=== PATIENT | male | born 1955 | race Caucasian/White ===

== ENCOUNTER 2019-07-10 07:37 | Inpatient (IN) ==
[2019-06-28 14:31] LABS: Basophils # (auto) 0.04 K/uL (0-0.2); Basophils % (auto) 0.7 %; Eosinophils # (auto) 0.25 K/uL (0-0.5); Eosinophils % (auto) 4.4 %; Hematocrit (blood only) 43.5 % (42-52); Hemoglobin 14.3 g/dL (14.0-18.0); Immature Granulocytes # (auto) 0.01 K/uL (0.00-0.02); Immature Granulocytes % (auto) 0.2 %; Lymphocytes # (auto) 1.96 K/uL (1.2-3.4); Lymphocytes % (auto) 34.1 %; Mean Corpuscular Hemoglobin 31.8 pg (25-34); Mean Corpuscular Hgb Conc 32.9 g/dL (32-36); Mean Corpuscular Volume 96.9 fL (80-100); Mean Platelet Volume 11.1 fL (7.4-10.4); Monocytes % (auto) 13.9 %; Neutrophils # (auto) 2.68 K/uL (1.4-6.5); Neutrophils % (auto) 46.7 %; Platelet Count 220 K/uL (130-400); RDW Coefficient of Variation 12.7 % (11.5-14.5); RDW Standard Deviation 44.8 fL (36.4-46.3); Red Blood Count 4.49 M/uL (4.7-6.1); White Blood Count 5.74 K/uL (4.8-10.8)
[2019-06-28 14:46] LABS: INR 1.1 (0.9-1.1); Partial Thromboplastin Time 25.8 Seconds (21.0-31.0); Prothrombin Time 11.1 Seconds (9.0-12.0)
[2019-06-28 15:49] LABS: Appearance Urine Clear (Clear); Bilirubin Urine Negative (Negative); Blood Urine Negative (Negative); Color Urine Yellow; Glucose Urine UA Negative (Negative); Ketones Urine Negative (Negative); Leukocyte Esterase Urine Negative (Negative); Nitrite Urine Negative (Negative); Protein Urine Negative (Negative); Specific Gravity Urine 1.018 (1.000-1.030); Urobilinogen Urine Negative (Negative)
--- NOTE | 2019-07-03 09:35 | Anesthesiology Consultation ---
Date of Service July 03, 2019 Assessment & Plan (1) Encounter for pre-operative examination: Chart Review Chart Review: Acceptable Risk for Surgery and Patient NOT seen in Pre Admission Testing Please check BMP day of procedure Consults Requested none History Surgery Operation Date: 07/10/19 07:45 Proposed Procedures p L1-L2 Decompression, T10-L2 Posterior Spinal Fusion, L1-L2 Possible Interbody Fusion; Bilateral L2 Screw Removal; Spinal Cord Monitoring - Gigi House DO Height/Weight Height: 5 ft 11 in Weight: 120.202 kg Allergies Allergy/AdvReac Type Severity Reaction Status Date / Time ARTIFICIAL SWEETNERS Allergy Intermediate HIVES/SWELL Uncoded 06/21/19 14:25 ING HAM Allergy Intermediate Hives Uncoded 06/21/19 14:25 Medications Home Medications Medication Instructions Recorded Confirmed Last Taken acetaminophen [Tylenol Extra 1,000 mg PO Q6H PRN 06/21/19 06/21/19 Unknown Strength] albuterol sulfate 2 puff INHALATION Q6H PRN 06/21/19 06/21/19 Unknown atenolol 100 mg PO QAM 06/21/19 06/21/19 Unknown fluticasone propion-salmeterol 1 inh INHALATION QAM 06/21/19 06/21/19 Unknown [Advair Diskus] lactobacillus combination no.4 3,000 mmu cells PO HS 06/21/19 06/21/19 Unknown [Probiotic] lisinopril 20 mg PO QAM 06/21/19 06/21/19 Unknown omeprazole magnesium [Prilosec OTC] 20 mg PO QAM 06/21/19 06/21/19 Unknown pravastatin 40 mg PO 06/21/19 06/21/19 Unknown Past Medical History Medical History Degenerative disc disease GERD (gastroesophageal reflux disease) Hyperlipidemia Hypertension Myocardial Infarction 1984 Osteoarthritis Wheezing REASON FOR INHALERS Exercise / Class Metabolic Activity II 4-5 Yardwork/Stairs/Walk up hill Past Family History Family History Other No significant family history Past Surgical History Surgical History Fusion of spine LUMBAR H/O metal removed from eye History of cardiac cath X 2 IN 1984 [facility] History of cholecystectomy History of colonoscopy History of discectomy LUMBAR History of esophagogastroduodenoscopy (EGD) History of tonsillectomy and adenoidectomy Social History Smoking Status: Never smoker tobacco type: smokeless tobacco Do You Dip or Chew Tobacco: Yes (CHEWS POUCH TOBACCO) Hx Alcohol Use: Yes Alcohol type: beer alcohol intake frequency: holidays/special occasions only Hx Substance Use: No substance use type: does not use Testing Laboratory Results 06/28/19 13:22 PT 11.1 Seconds (9.0-12.0) 06/28/19 13:22 INR 1.1 (0.9-1.1) 06/28/19 13:22 APTT 25.8 Seconds (21.0-31.0) 06/28/19 13:22 Urine Color Yellow 06/28/19 13:22 Urine Appearance Clear (Clear) 06/28/19 13:22 Urine pH 7.0 (4.5-7.5) 06/28/19 13:22 Ur Specific [place] 1.018 (1.000-1.030) 06/28/19 13:22 Urine Protein Negative (Negative) 06/28/19 13:22 Urine Glucose (UA) Negative (Negative) 06/28/19 13:22 Urine Ketones Negative (Negative) 06/28/19 13:22 Urine Nitrite Negative (Negative) 06/28/19 13:22 Ur Leukocyte Esterase Negative (Negative) 06/28/19 13:22 Blood Type A Positive 06/28/19 13:22 Antibody Screen NEGATIVE 06/28/19 13:22 Electrocardiogram Date: 02/19/19 Findings: + LVH and + SB @ (59 bpm)
[~2019-07-10 07:37] MED LIST: ACETAMINOPHEN 500 MG TAB PO SCH; CEFAZOLIN 3000MG 72.5 ML IV SCH; CeleBREX 200 MG CAP PO SCH; GABAPENTIN 600 MG DOSE PO SCH; HYDROmorphone INJ 2 MG/ML SYR/VIAL ONE; LR 15ML/HR IV SCH; MIDAZOLAM HCL 1 MG/ML 2ML VIAL ONE; fentaNYL citrate 100 MCG/2 ML VIAL ONE
[2019-07-10 08:56] LABS: BUN Creatinine Ratio 20.7 (10-20); Calcium 9.2 mg/dl (8.5-10.1); Creatinine Clr Calc Pharmacy 93.4 ml/min; Est GFR (African American) 85.2; Est GFR (Non-African American) 73.5; Potassium 4.4 mmol/L (3.5-5.1)
[2019-07-10] MEDS ORDERED: SODIUM CHLORIDE 0.9% 250 ML IV PRN (09:28)
--- NOTE | 2019-07-10 09:32 | History & Physical Bridge Note ---
Date of Service July 10, 2019 History & Physical Bridge Note I have examined the patient, reviewed the History & Physical and in the interval since the performance of the History & Physical I have noted the following changes of clinical significance: no changes noted
--- NOTE | 2019-07-10 09:33 | History & Physical Report ---
Date of Service July 10, 2019 Assessment & Plan (1) Lumbar stenosis with neurogenic claudication: Decompression L1-2 posterior spinal fusion T10-L2 possible interbody fusion L1-2, removal of L2 screws bilaterally Present on Admission?: Yes History of Present Illness Chief Complaint: Bilateral leg pain Primary Care Provider: Gaviota Ramos This is a 64-year-old male presents with severe spinal stenosis and back and bilateral leg symptoms. He is failed extensive course of nonoperative care and here for surgical intervention. Allergies Allergy/AdvReac Type Severity Reaction Status Date / Time ARTIFICIAL SWEETNERS Allergy Intermediate HIVES/SWELL Uncoded 07/10/19 08:20 ING HAM Allergy Intermediate Hives Uncoded 07/10/19 08:20 Home Medications Home Medications Medication Instructions Recorded Confirmed Type acetaminophen [Tylenol Extra 1,000 mg PO Q6H PRN 06/21/19 07/10/19 History Strength] albuterol sulfate 2 puff INHALATION Q6H PRN 06/21/19 07/10/19 History atenolol 100 mg PO QAM 06/21/19 07/10/19 History fluticasone propion-salmeterol 1 inh INHALATION QAM 06/21/19 07/10/19 History [Advair Diskus] lactobacillus combination no.4 3,000 mmu cells PO HS 06/21/19 07/10/19 History [Probiotic] lisinopril 20 mg PO QAM 06/21/19 07/10/19 History omeprazole magnesium [Prilosec OTC] 20 mg PO QAM 06/21/19 07/10/19 History pravastatin 40 mg PO HS 06/21/19 07/10/19 History Past Med/Surg History Medical History Degenerative disc disease GERD (gastroesophageal reflux disease) Hyperlipidemia Hypertension Myocardial Infarction 1984 Osteoarthritis Wheezing REASON FOR INHALERS Surgical History Fusion of spine LUMBAR H/O metal removed from eye History of cardiac cath X 2 IN 1984 [facility] History of cholecystectomy History of colonoscopy History of discectomy LUMBAR History of esophagogastroduodenoscopy (EGD) History of tonsillectomy and adenoidectomy Family History Other No significant family history Social History Preferred Language: Czech Communication Ability: Effective Transformer 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 Results & Data Vital Signs (Past 12 Hours) Vital Signs Temp Pulse Resp BP Pulse Ox 07/10/19 08:11 37.1 C 61 20 167/98 H 94
[2019-07-10] MEDS ORDERED: BACITRACIN INJ 50,000 UNIT VIAL ONE (09:42)
[2019-07-10] MEDS ORDERED: BUPIVACAINE/EPINEPHRINE 0.5% MPF 1:200,000 30 ML VIAL ONE (09:42)
[2019-07-10] MEDS ORDERED: fentaNYL citrate 100 MCG/2 ML VIAL ONE ×5 (10:39→12:40)
[2019-07-10] MEDS ORDERED: HYDROmorphone INJ 2 MG/ML SYR/VIAL ONE ×2 (10:40→12:44)
[2019-07-10] MEDS ORDERED: PROPOFOL IV EMULSION 10 MG/ML 20 ML VIAL IV ONE (10:40)
[2019-07-10] MEDS ORDERED: GLYCOPYRROLATE 0.2 MG/ML VIAL ONE ×2 (10:40→11:15)
[2019-07-10] MEDS ORDERED: NEOSTIGMINE METHYLSULFATE 1 MG/ML 10ML VIAL ONE (10:40)
[2019-07-10] MEDS ORDERED: DEXAMETHASONE SOD INJ 4 MG/ML VIAL ONE (10:40)
[2019-07-10] MEDS ORDERED: LIDOCAINE HCL 2% 2 ML VIAL/AMP(20MG/ML) INFIL ONE (10:40)
[2019-07-10] MEDS ORDERED: ROCURONIUM BROMIDE 10 MG/ML 5 ML VIAL ONE (10:40)
[2019-07-10] MEDS ORDERED: ONDANSETRON INJ 2 MG/ML 2 ML VIAL ONE (10:40)
[2019-07-10] MEDS ORDERED: ePHEDrine sulfate 50 MG/ML AMP ONE (10:45)
[2019-07-10] MEDS ORDERED: PHENYLEPHRINE 100MCG/ML 5ML SYR ONE (10:45)
[2019-07-10] MEDS ORDERED: ePHEDrine sulfate 50 MG/ML SYR ONE (10:45)
[2019-07-10] MEDS ORDERED: LARYING-O-JET KIT (LTA) ONE (10:45)
[2019-07-10] MEDS ORDERED: FLOSEAL HEMOSTATIC MATRIX 10ML TOP ONE (11:09)
[2019-07-10] MEDS ORDERED: ATROPINE SULFATE 0.1 MG/ML 10ML SYR IV PRN (12:08)
[2019-07-10] MEDS ORDERED: HYDROmorphone INJ 1 MG/ML SYRINGE IV PRN (12:08)
[2019-07-10] MEDS ORDERED: ONDANSETRON INJ 2 MG/ML 2 ML VIAL IV PRN ×2 (12:08→14:36)
[2019-07-10] MEDS ORDERED: FLUMAZENIL 0.1 MG/1 ML 10 ML VIAL IV PRN (12:08)
[2019-07-10] MEDS ORDERED: ePHEDrine sulfate 50 MG/ML AMP IV PRN (12:08)
[2019-07-10] MEDS ORDERED: LABETALOL HCL IV 5 MG/ML 20ML IV PRN (12:08)
[2019-07-10] MEDS ORDERED: PROMETHAZINE HCL 12.5 MG in SODIUM CHLORIDE 0.9% 50 ML IV PRN ×2 (12:08→14:36)
[2019-07-10] MEDS ORDERED: NALOXONE HCL 0.4 MG/1 ML VIAL/CARP IV PRN ×2 (12:08→14:36)
--- NOTE | 2019-07-10 12:37 | Operative Report ---
Post Operative Report Pre & Post Diagnosis Operation Date: 07/10/19 09:25 Pre-Op Diagnosis: Lumbar stenosis with neurogenic claudication Post-Op Diagnosis: Lumbar stenosis with neurogenic claudication Procedure Operation Date: 07/10/19 09:25 Actual Procedures #1 removal of posterior instrumentation L2. #2 expiration of fusion L2-3. #3 lumbar decompression with bilateral medial facetectomies and foraminotomies T12- L1 L1-L2. #4 posterior spinal fusion T12 T11 L1 and L2. #5 placement posterior instrumentation T12-L1. #6 interbody fusion L1-2. #7 placed a peek cage 8 x 26 mm at L1-2. #8 placement of local autograft in the posterior lateral gutters per #9 placement infuse collagen sponge combined master graft in the posterior lateral gutters from T11-L2 and ostial amp and interbody space. Surgeon Gigi House, Manager Organizational Lisseth Luz Estimated Blood Loss 250 Findings See Below Patient is 5 foot 11 inches tall weighing over 120 kg with a BMI in excess of 37. The patient's body habitus did add significant technical difficulty throughout the procedure adding at least 35% increase in operative time. Specimens None Indications This is a 64-year-old male presents with significant cervical spinal stenosis limiting his ability to ambulate. Subsequently like to undergo the above- mentioned procedure. Description of Procedure Patient was met with identified and informed consent obtained. Patient was then taken to the operative suite underwent intubation placed in the prone position on the Dennis table on top of the Talha frame. All bony prominences well- padded eyes inspected to ensure no external pressure placed upon the peer at this point the thoracolumbar spine was prepped and draped in normal sterile fashion. Sharp dissection with the assistance of Bovie cautery was performed down to and exposing the lamina and transverse processes of T11 T12-L1 and instrumentation at L2. Then proceed remove the connectors and the pedicle screws at L2 bilaterally. Explore the fusion mass noting it to be intact. Then performed a complete laminectomy of L1 partial laminectomy of L2 from a caudal cephalad fashion including bilateral medial facetectomies and foraminotomies to address severe stenosis. Then by way of a transforaminal approach and left co mplete discectomy of L1-L2 was performed in plate graded to subcortical bleeding bone and an 8 x 26 mm peek cage filled with ostium bone graft tapped in position. Pedicle screw was then placed in T12 and L1 bilaterally with assistance of fluoroscopy and barrel connectors were placed on the proximal aspect of the pre-existing rods. I then attached rods to the T12-L1 level by way of through the barrel connector to the existing rods. Apparatus was locked into position. Transverse processes of T11-T12 L1-L2 and then burred to subcortical bleeding bone. Infuse collagen sponge master graft local autograft placed in the posterior lateral gutters. 15 round ALETHEA drain inserted. The incision was then closed with 1 Vicryl in the fascia 2-0 Vicryl subcutaneous and 4 Monocryl for final skin closure. Steri-Strip sterile dressings placed. Patient will continue PACU stable condition. Please note Lisseth Luz present all the entire procedure involved the patient positioning complex portions of t he surgery and final skin closure. Lastly spinal cord monitoring was utilized that the procedure no changes noted. I attest to the content of the Intraoperative Record and any orders documented therein. Any exceptions are noted below.
[2019-07-10] MEDS ORDERED: KETOROLAC 30 MG/ML VIAL ONE (12:44)
--- NOTE | 2019-07-10 13:00 | Fluoroscopy Report ---
INTRAOPERATIVE RADIOGRAPHS CLINICAL HISTORY: T10-L2 spinal fusion. Fluoroscopy time: 25 seconds. FINDINGS: 2 spot fluoroscopic views of the thoracolumbar junction are presented. There has been hank ectomy and posterior fusion the thoracolumbar spine, reportedly from T10 to L2. Discectomy change is noted at a single level. The orthopedic hardware appears intact. IMPRESSION: Intraoperative images from T10-L2 spinal fusion as above. Electronically signed by: Pradip Renteria M.D. 07/10/2019 12:58 PM
[2019-07-10] MEDS ORDERED: ESMOLOL HCL INJ 10 MG/ML 10ML VIAL IV ONE (13:05)
[2019-07-10 13:44] LABS: Hematocrit (blood only) 37.6 % (42-52); Hemoglobin 12.7 g/dL (14.0-18.0)
[2019-07-10 14:16] LABS: BUN Creatinine Ratio 17.7 (10-20); Calcium 8.3 mg/dl (8.5-10.1); Creatinine Clr Calc Pharmacy 86.1 ml/min; Est GFR (African American) 77.2; Est GFR (Non-African American) 66.7; Potassium 4.4 mmol/L (3.5-5.1)
--- NOTE | 2019-07-10 14:16 | Anesthesiology Progress Note ---
Date of Service July 10, 2019 Anesthesia Post Procedure Vital Signs Vital Signs: Temp Pulse Pulse Resp BP Pulse Ox 07/10/19 13:50 36.9 C 54 L 16 124/69 100 07/10/19 13:40 36.9 C 59 L 16 110/62 100 07/10/19 13:30 36.9 C 64 15 109/68 100 07/10/19 13:20 36.1 C L 66 14 110/72 100 07/10/19 13:10 36.1 C L 67 15 126/72 100 07/10/19 13:02 36.1 C L 81 10 L 107/70 99 07/10/19 08:11 37.1 C 61 20 167/98 H 94 Transfer of Care Handoff Completed per policy Notes Mental Status: alert / awake / arousable Patient Amnestic to Procedure: Yes Nausea / Vomiting: adequately controlled Pain: adequately controlled Airway Patency, RR, SpO2: stable & adequate BP & HR: stable & adequate Hydration State: stable & adequate Anesthetic Complications: no major complications apparent
[2019-07-10] MEDS ORDERED: METOCLOPRAMIDE HCL INJ 5 MG/ML 2 ML VIAL IV PRN (14:36)
[2019-07-10] MEDS ORDERED: SOD PHOSPHATE/SOD BIPHOSPHATE ENEMA 132 ML BTL PR PRN (14:36)
[2019-07-10] MEDS ORDERED: OXYCODONE HCL IR 5 MG TAB (IMMEDIATE RELEASE) PO PRN (14:36)
[2019-07-10] MEDS ORDERED: DO NOT ADMINISTER FLU VACCINE PRN (14:36)
[2019-07-10] MEDS ORDERED: MAGNESIUM HYDROXIDE SUSP 30 ML UDC PO PRN (14:36)
[2019-07-10] MEDS ORDERED: FAMOTIDINE 20 MG TAB PO PRN (14:36)
[2019-07-10] MEDS ORDERED: ONDANSETRON 4 MG TAB PO PRN (14:36)
[2019-07-10] MEDS ORDERED: ACETAMINOPHEN 500 MG TAB PO PRN ×2 (14:36)
[2019-07-10] MEDS ORDERED: ALBUTEROL HFA 8 GM INHALER INH PRN (14:36)
[2019-07-10] MEDS ORDERED: HYDROmorphone INJ 0.5 MG/0.5 ML SYR IV PRN (14:36)
[2019-07-10] MEDS ORDERED: LORazepam 0.5 MG/1 ML VIAL IV PRN (14:36)
[2019-07-10] MEDS ORDERED: LORazepam 0.5 MG TAB PO PRN (14:36)
[2019-07-10] MEDS ORDERED: DO NOT ADMINISTER PNEUMOCOCCAL VACCINE PRN (14:36)
[2019-07-10] MEDS ORDERED: bisacodyL 10 MG SUPP PR PRN (14:36)
[2019-07-10] MEDS ORDERED: ALUMINUM/MAGNESIUM SUSP 30 ML UDC PO PRN (14:36)
[2019-07-10] MEDS ORDERED: ACETAMINOPHEN 1,000 MG/100 ML VIAL IV PRN (15:00)
--- NOTE | 2019-07-10 15:03 | Hospitalist Consultation ---
Date of Consultation July 10, 2019 Assessment & Plan (1) S/P spinal surgery: This is a 64 yo M with a PMH of HTN, HLD, h/o [place] in 1984, GERD and lumbar stenosis who is POD #0 s/p decompression L1-2, posterior fusion T10-L2 and removal of instrumentation by Dr. House. -POD#0 s/p decompression L1-2, posterior fusion T10-L2 and removal of instrumentation by Dr. House -Pt is doing well post-operatively -Per ortho for pain control, wound care, anticoagulation and activities -Monitor H&H (pre-op hgb 14.3). EBL 250 ml, ALETHEA output 75 ml -Continue incentive spirometry, PT/OT when appropriate (2) Hypertension: Normotensive. Continue lisinopril, atenolol (3) Hyperlipidemia: Continue pravastatin (4) History of [place] (myocardial infarction): H/o [place] in 1984 -Continue atenolol, pravastatin -Used to take a baby aspirin daily but now takes two full dose aspirin daily for pain control, which was held pre-operatively -Hold until cleared by ortho and then resume asa 81mg daily (5) Tobacco use disorder: Chews tobacco daily PCP: Follows with Dr. Ramos in [place], [place]. Dispo: Per primary service Patient seen in collaboration with Dr. Short. Please see addendum. Supervising Physician Co-Signing Physician Notes I, Dr. Arturo Short, have seen and examined the patient with physician patient assistant and like to comment that This is a patient under general surgery service Dr. House and medicine hospitalist consult asked to evaluate Patient had diagnosis Lumbar stenosis with neurogenic claudication and on 07/10/19 had spine surgery of decompression and fusion (Actual Procedures #1 removal of posterior instrumentation L2. #2 expiration of fusion L2-3. #3 lumbar decompression with bilateral medial facetectomies and foraminotomies T12- L1 L1-L2. #4 posterior spinal fusion T12 T11 L1 and L2. #5 placement posterior instrumentation T12-L1. #6 interbody fusion L1-2. #7 placed a peek cage 8 x 26 mm at L1-2. #8 placement of local autograft in the posterior lateral gutters per #9 placement infuse collagen sponge combined master graft in the posterior lateral gutters from T11-L2 and ostial amp and interbody space.) -hospitalist medicine consult will monitor post-operatively, trend Hgb because of acute blood loss anemia from surgery -pain control, bowel regimen -patient will be evaluated by PT/OT -ALETHEA drain management as per orthopedics -depending on follow up blood counts and orthopedic re-assessment, will then need to decide dosing of aspirin, hold aspirin for now DVT prophylaxis: SCDs agree with other medical management recommendations for health issues as documented by physician patient assistant On physical exam General: no acute distress Lungs: breathing on room air, no wheezing, lung sounds clear on anterior auscultation Heart: regular rate Back: ALETHEA drain to the back Extremities: no edema History of Present Illness Reason for Consultation: med [facility] Attending Physician: Gigi House DO History of Present Illness This is a 64 yo M with a PMH of HTN, HLD, h/o [place] in 1984, GERD and lumbar stenosis who is POD #0 s/p decompression L1-2, posterior fusion T10-L2 and removal of instrumentation by Dr. House. Patient is feeling well postoperatively. Endorses minimal surgical site pain. Denies any numbness or paresthesias of lower extremities. Endorses some lightheadedness with movement but denies visual changes, chest pain or shortness of breath. Tolerating diet well without any nausea or vomiting. Denies fever, chills, confusion, palpitations, wheezing, dysuria, diarrhea or constipation. Follows with Dr. Ramos in [place], [place]. Allergies Allergy/AdvReac Type Severity Reaction Status Date / Time ARTIFICIAL SWEETNERS Allergy Intermediate HIVES/SWELL Uncoded 07/10/19 08:20 ING HAM Allergy Intermediate Hives Uncoded 07/10/19 08:20 Home Medications Home Medications Medication Instructions Recorded Confirmed Type acetaminophen [Tylenol Extra 1,000 mg PO Q6H PRN 06/21/19 07/10/19 History Strength] albuterol sulfate 2 puff INHALATION Q6H PRN 06/21/19 07/10/19 History atenolol 100 mg PO QAM 06/21/19 07/10/19 History fluticasone propion-salmeterol 1 inh INHALATION QAM 06/21/19 07/10/19 History [Advair Diskus] lactobacillus combination no.4 3,000 mmu cells PO HS 06/21/19 07/10/19 History [Probiotic] lisinopril 20 mg PO QAM 06/21/19 07/10/19 History omeprazole magnesium [Prilosec OTC] 20 mg PO QAM 06/21/19 07/10/19 History pravastatin 40 mg PO HS 06/21/19 07/10/19 History Patient History Medical History Tobacco use disorder (Chronic) History of [place] (myocardial infarction) (Resolved) Hyperlipidemia (Chronic) Hypertension (Chronic) GERD (gastroesophageal reflux disease) (Chronic) Degenerative disc disease (Chronic) Osteoarthritis (Chronic) Surgical History H/O metal removed from eye (Chronic) History of cardiac cath (Chronic) X 2 IN 1984 [facility] History of cholecystectomy (Chronic) History of colonoscopy (Chronic) History of discectomy (Chronic) LUMBAR History of esophagogastroduodenoscopy (EGD) (Chronic) History of tonsillectomy and adenoidectomy (Chronic) Family History Other No significant family history Social History Preferred Language: Austrian Communication Ability: Effective 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: No Beliefs That Will Affect Care: None Current Living Situation: Spouse Other Information That Helps Us Care for You: No Feels Safe at Home: Yes Safety Concerns: Feels Safe At This Time Smoking Status: Never smoker Tobacco Type: smokeless tobacco ; Do You Dip or Chew Tobacco: Yes (CHEWS POUCH TOBACCO) ; Second Hand Exposure: Yes (PAST HX OF EXPOSURE) ; Tobacco Cessation Education Requested by Patient: No Hx Alcohol Use: Yes Alcohol type: beer Alcohol Intake Frequency: Rarely Hx Substance Use: No Review of Systems Review of Systems: At least ten systems reviewed and negative except as noted in the HPI. Physical Exam Physical Exam: General Appearance: WD/WN, vitals as above, NAD, sitting up in bed, pleasant, conversing easily while eating lunch Head: normocephalic, atraumatic Eyes: normal inspection, PERRL, conjunctivae normal, anicteric sclerae ENT: external ear and nose normal, oropharynx normal Neck: trachea midline, no thyromegaly normal visual inspection Respiratory: lungs clear to auscultation, no wheeze, rales, rhonchi. Normal insp/exp effort, no accessory muscle use Cardiovascular: regular rate, rhythm, no murmur, normal peripheral pulses. Vessels: no JVD or carotid bruit Chest: normal inspection of chest Abdomen/GI: normal bowel sounds, soft, nontender, no hepatosplenomegaly Extremities/Musculoskelatal: Lumbosacral surgical dressing clean, dry, intact. ALETHEA drain with sanguineous output. No cyanosis or clubbing, extremities motor strength 5/5 Neurologic: PERRL, EOMI, accommodation nl, no face palsy, no dysarthria CN's II-XI intact bilaterally and moves all extremities, strength intact in BLE Psychiatric: A+Ox3, euthymic affect Skin: no rashes, normal color, warm/dry Results & Data Vital Signs (Past 12 Hours) Vital Signs Temp Pulse Pulse Pulse Resp BP Pulse Ox 07/10/19 14:51 62 17 120/68 98 07/10/19 14:20 36.5 C 61 16 104/57 L 100 07/10/19 13:50 36.9 C 54 L 16 124/69 100 07/10/19 13:40 36.9 C 59 L 16 110/62 100 07/10/19 13:30 36.9 C 64 15 109/68 100 07/10/19 13:20 36.1 C L 66 14 110/72 100 07/10/19 13:10 36.1 C L 67 15 126/72 100 07/10/19 13:02 36.1 C L 81 10 L 107/70 99 07/10/19 08:11 37.1 C 61 20 167/98 H 94 Laboratory Results Short CBC 07/10/19 Range/Units 13:36 Hgb 12.7 L (14.0-18.0) g/dL Hct 37.6 L (42-52) % BMP 07/10/19 07/10/19 08:19 13:36 Sodium 140 142 Potassium 4.4 4.4 Chloride 108 H 108 H Carbon Dioxide 28 27 BUN 22 H 20 H Creatinine 1.07 1.16 Glucose 106 H 110 H Calcium 9.2 8.3 L
[2019-07-10] MEDS: KETOROLAC 30 MG/ML VIAL IV SCH ×2 (15:39→21:27)
[2019-07-10] MEDS: CEFAZOLIN 2000MG 2,000 MG/15 ML SYR IV SCH (17:32)
[2019-07-10] MEDS: LACTATED RINGER'S 1,000 ML IV SCH (18:47)
[2019-07-10] MEDS: PRAVASTATIN SOD 40 MG TAB PO SCH (21:26)
[2019-07-10] MEDS: DOCUSATE SODIUM/SENNA 50/8.6MG TAB PO SCH (21:27)
[2019-07-10] MEDS: LACTOBACILLUS ACIDOPHILUS (FLORANEX) TAB PO SCH (21:27)
[2019-07-11] MEDS: LACTATED RINGER'S 1,000 ML IV SCH ×2 (01:10→03:37)
[2019-07-11] MEDS: KETOROLAC 30 MG/ML VIAL IV SCH ×2 (03:08→08:26)
[2019-07-11] MEDS: CEFAZOLIN 2000MG 2,000 MG/15 ML SYR IV SCH (03:08)
[2019-07-11] MEDS: POLYETHYLENE (MIRALAX) 17 GM PACK PO SCH ×4 (05:37→23:25)
[2019-07-11] MEDS: TRAMADOL HCL 50 MG TABLET PO PRN ×4 (05:38→20:20)
[2019-07-11 06:02] LABS: Basophils # (auto) 0.02 K/uL (0-0.2); Basophils % (auto) 0.2 %; Eosinophils # (auto) 0.16 K/uL (0-0.5); Hemoglobin 11.5 g/dL (14.0-18.0); Immature Granulocytes # (auto) 0.01 K/uL (0.00-0.02); Immature Granulocytes % (auto) 0.1 %; Lymphocytes # (auto) 1.02 K/uL (1.2-3.4); Lymphocytes % (auto) 12.4 %; Mean Corpuscular Hemoglobin 32.4 pg (25-34); Mean Corpuscular Hgb Conc 32.9 g/dL (32-36); Mean Corpuscular Volume 98.6 fL (80-100); Mean Platelet Volume 10.9 fL (7.4-10.4); Monocytes # (auto) 0.84 K/uL (0.11-0.59); Monocytes % (auto) 10.2 %; Neutrophils # (auto) 6.15 K/uL (1.4-6.5); Neutrophils % (auto) 75.1 %; Platelet Count 158 K/uL (130-400); RDW Coefficient of Variation 12.5 % (11.5-14.5); RDW Standard Deviation 45.3 fL (36.4-46.3); Red Blood Count 3.55 M/uL (4.7-6.1)
[2019-07-11 06:38] LABS: BUN Creatinine Ratio 14.7 (10-20); Calcium 8.5 mg/dl (8.5-10.1); Est GFR (African American) 95.9; Est GFR (Non-African American) 82.7; Potassium 4.2 mmol/L (3.5-5.1)
[2019-07-11] MEDS: FLUTICASONE/SALMETEROL 250/50 (ADVAIR) 14 PUFF/1 INHALER INH SCH (08:25)
[2019-07-11] MEDS: PANTOprazole 40 MG TAB PO SCH (08:26)
[2019-07-11] MEDS: ATENOLOL 50 MG TABLET PO SCH (08:26)
[2019-07-11] MEDS: lisinopriL 20 MG TAB PO SCH (08:26)
--- NOTE | 2019-07-11 08:28 | Hospitalist Progress Note ---
Date of Service July 11, 2019 Assessment & Plan (1) S/P spinal surgery: Patient had diagnosis Lumbar stenosis with neurogenic claudication and on 07/10/19 had spine surgery of decompression and fusion (Actual Procedures #1 removal of posterior instrumentation L2. #2 expiration of fusion L2-3. #3 lumbar decompression with bilateral medial facetectomies and foraminotomies T12- L1 L1-L2. #4 posterior spinal fusion T12 T11 L1 and L2. #5 placement posterior instrumentation T12-L1. #6 interbody fusion L1-2. #7 placed a peek cage 8 x 26 mm at L1-2. #8 placement of local autograft in the posterior lateral gutters per #9 placement infuse collagen sponge combined master graft in the posterior lateral gutters from T11-L2 and ostial amp and interbody space.) -pain control, bowel regimen -patient will be evaluated by PT/OT -ALETHEA drain management as per orthopedics -trial of void with hall discontinued, monitor for bowel movements Acute blood loss anemia -pre-op hgb 14.3 -EBL 250 ml during surgery -ALETHEA drain output -Hgb postop generally stable as 12.7 to 11.5 -can hold aspirin for now (2) Hypertension: -continue lisinopril, atenolol (3) Hyperlipidemia: -Continue pravastatin (4) History of [place] (myocardial infarction): H/o [place] in 1984 -Continue atenolol, pravastatin -will hold aspirin at this time because post-op surgery with anemia (5) Tobacco use disorder: -Chews tobacco daily -off nicotine patch PCP: Follows with Dr. Ramos in [place], [place] Subjective Patient seen and examined at the bedside. he has some back pain but getting pain medications. He has ALETHEA drain to the back with serosanguineous fluid. Nurse just discontinued the hall. Patient has not had bowel movement yet since his surgery. denies shortness of breath. denies chest pain or abdominal pain. no dizziness. no lightheadedness Physical Exam Constitutional: WD/WN, vitals as above Eyes: PERRL, conjunctivae normal, anicteric sclerae EOM intact bilaterally ENMT: external ear and nose normal, oropharynx normal Respiratory: normal respiratory effort, lungs clear to auscultation Cardiovascular: RRR, no murmur, no edema Gastrointestinal (Abdomen): normal bowel sounds, soft, nontender, no hepatosplenomegaly Musculoskeletal: Head/Neck/Chest: normocephalic and head atraumatic ALETHEA drain to the back Neurologic: PERRL, EOMI, accommodation nl, no face palsy, no dysarthria Psychiatric: A+Ox3, euthymic affect Results & Data Vital Signs (Past 12 Hours) Vital Signs Temp Pulse Resp BP Pulse Ox 07/11/19 07:10 36.7 C 72 16 143/81 H 93 07/11/19 03:07 36.9 C 62 16 128/77 97 07/10/19 23:18 36.8 C 65 16 113/68 92
[2019-07-11] MEDS: NICOTINE 7 MG/24 HR TDSY TD SCH (09:36)
--- NOTE | 2019-07-11 11:29 | Orthopedic Progress Note ---
Date of Service July 11, 2019 Assessment & Plan (1) Lumbar stenosis with neurogenic claudication: This time will initiate physical therapy advance his bowel regiment hopefully discharge home the next few days. Present on Admission?: Yes Subjective Patient's back pain is controlled leg symptoms improved. Physical Exam Physical Exam: On exam he appears comfortable with good strength testing. Results & Data Vital Signs (Past 12 Hours) Vital Signs Temp Pulse Resp BP Pulse Ox 07/11/19 10:51 37 C 73 18 148/81 H 93 07/11/19 07:10 36.7 C 72 16 143/81 H 93 07/11/19 03:07 36.9 C 62 16 128/77 97
[2019-07-11] MEDS: LACTOBACILLUS ACIDOPHILUS (FLORANEX) TAB PO SCH (20:14)
[2019-07-11] MEDS: DOCUSATE SODIUM/SENNA 50/8.6MG TAB PO SCH (20:15)
[2019-07-11] MEDS: PRAVASTATIN SOD 40 MG TAB PO SCH (20:16)
[2019-07-12] MEDS: TRAMADOL HCL 50 MG TABLET PO PRN ×3 (06:16→22:15)
[2019-07-12] MEDS: POLYETHYLENE (MIRALAX) 17 GM PACK PO SCH (06:19)
[2019-07-12] MEDS: FLUTICASONE/SALMETEROL 250/50 (ADVAIR) 14 PUFF/1 INHALER INH SCH (07:17)
--- NOTE | 2019-07-12 08:13 | Orthopedic Progress Note ---
Date of Service July 12, 2019 Assessment & Plan (1) Lumbar stenosis with neurogenic claudication: Patient is status post lumbar decompression fusion. We will continue with physical therapy advance his bowel regiment hopefully discharge home tomorrow. Present on Admission?: Yes Subjective Patient's back pain is controlled leg symptoms improved. Physical Exam Physical Exam: On exam he is ambling with a walker has good strength testing. Results & Data Vital Signs (Past 12 Hours) Vital Signs Temp Pulse Resp BP Pulse Ox 07/12/19 06:33 36.9 C 72 16 138/83 92 07/11/19 23:03 36.8 C 71 16 118/74 93
[2019-07-12] MEDS: lisinopriL 20 MG TAB PO SCH (08:41)
[2019-07-12] MEDS: PANTOprazole 40 MG TAB PO SCH (08:41)
[2019-07-12] MEDS: ATENOLOL 50 MG TABLET PO SCH (08:41)
--- NOTE | 2019-07-12 09:45 | Hospitalist Progress Note ---
Date of Service July 12, 2019 Assessment & Plan (1) S/P spinal surgery: Patient had diagnosis Lumbar stenosis with neurogenic claudication and on 07/10/19 had spine surgery of decompression and fusion (Actual Procedures #1 removal of posterior instrumentation L2. #2 expiration of fusion L2-3. #3 lumbar decompression with bilateral medial facetectomies and foraminotomies T12- L1 L1-L2. #4 posterior spinal fusion T12 T11 L1 and L2. #5 placement posterior instrumentation T12-L1. #6 interbody fusion L1-2. #7 placed a peek cage 8 x 26 mm at L1-2. #8 placement of local autograft in the posterior lateral gutters per #9 placement infuse collagen sponge combined master graft in the posterior lateral gutters from T11-L2 and ostial amp and interbody space.) -pain control, bowel regimen -PT/OT -ALETHEA drain management as per orthopedics Acute blood loss anemia -pre-op hgb 14.3 -EBL 250 ml during surgery -ALETHEA drain output -Hgb postop generally stable as 12.7 to 11.5 -hold aspirin for now, can resume aspirin 81 mg daily when ALETHEA drain removed (2) Hypertension: -continue lisinopril, atenolol (3) Hyperlipidemia: -Continue pravastatin (4) History of DC (myocardial infarction): H/o DC in 1984 -Continue atenolol, pravastatin -hold aspirin for now, can resume aspirin 81 mg daily when ALETHEA drain removed (5) Tobacco use disorder: -Chews tobacco daily -offer nicotine patch PCP: Follows with Dr. Ramos in [place], [place] Subjective continues to have ALETHEA drain to the back. reports back pain is generally controlled. no shortness of breath. no abdomen pain. no dizziness. no lightheadedness Physical Exam Constitutional: WD/WN, vitals as above Eyes: PERRL, conjunctivae normal, anicteric sclerae EOM intact bilaterally ENMT: external ear and nose normal, oropharynx normal Respiratory: normal respiratory effort, lungs clear to auscultation Cardiovascular: RRR, no murmur, no edema Gastrointestinal (Abdomen): normal bowel sounds, soft, nontender, no hepatosplenomegaly Musculoskeletal: Head/Neck/Chest: normocephalic and head atraumatic continues to have ALETHEA drain to the back Neurologic: PERRL, EOMI, accommodation nl, no face palsy, no dysarthria Psychiatric: A+Ox3, euthymic affect Results & Data Vital Signs (Past 12 Hours) Vital Signs Temp Pulse Resp BP Pulse Ox 07/12/19 06:33 36.9 C 72 16 138/83 92 07/11/19 23:03 36.8 C 71 16 118/74 93
[2019-07-12] MEDS: NICOTINE 7 MG/24 HR TDSY TD SCH (11:10)
[2019-07-12] MEDS: DOCUSATE SODIUM/SENNA 50/8.6MG TAB PO SCH (20:33)
[2019-07-12] MEDS: LACTOBACILLUS ACIDOPHILUS (FLORANEX) TAB PO SCH (20:33)
[2019-07-12] MEDS: PRAVASTATIN SOD 40 MG TAB PO SCH (20:34)
--- NOTE | 2019-07-13 08:10 | Hospitalist Progress Note ---
Date of Service July 13, 2019 Assessment & Plan (1) S/P spinal surgery: Patient had diagnosis Lumbar stenosis with neurogenic claudication and on 07/10/19 had spine surgery of decompression and fusion (Actual Procedures #1 removal of posterior instrumentation L2. #2 expiration of fusion L2-3. #3 lumbar decompression with bilateral medial facetectomies and foraminotomies T12- L1 L1-L2. #4 posterior spinal fusion T12 T11 L1 and L2. #5 placement posterior instrumentation T12-L1. #6 interbody fusion L1-2. #7 placed a peek cage 8 x 26 mm at L1-2. #8 placement of local autograft in the posterior lateral gutters per #9 placement infuse collagen sponge combined master graft in the posterior lateral gutters from T11-L2 and ostial amp and interbody space.) -pain control, bowel regimen -PT/OT -ALETHEA drain management as per orthopedics Acute blood loss anemia -pre-op hgb 14.3 -EBL 250 ml during surgery -ALETHEA drain output -Hgb postop generally stable as 12.7 to 11.5 -hold aspirin for now, can resume aspirin 81 mg daily when ALETHEA drain removed -patient is asymptomatic (2) Hypertension: -continue lisinopril, atenolol (3) Hyperlipidemia: -Continue pravastatin (4) History of IL (myocardial infarction): H/o IL in 1984 -Continue atenolol, pravastatin -hold aspirin for now, can resume aspirin 81 mg daily when ALETHEA drain removed (5) Tobacco use disorder: -Chews tobacco daily -offer nicotine patch PCP: Follows with Dr. Ramos in [place], [place] Disposition: patient appears to be asymptomatic. continues to have ALETHEA drain. ALETHEA drain needs to be removed by orthopedics before he can be discharged by orthopedic service. recommend that patient have complete blood counts repeated by his primary care provider after hospital follow up. Hospitalist medicine service will continue to follow the patient if he remains here today Subjective patient seen by hospitalist medicine service this AM. he still has ALETHEA drain to the back. orthopedic service have not discussed with patient today yet. patient appears comfortable. no distress. no acute back pain. on room air. no shortness of breath. no chest pain. no abdominal pain. he notes that he is urinating. he feels some bloating. he has been able to make bowel movements Physical Exam Constitutional: WD/WN, vitals as above Eyes: PERRL, conjunctivae normal, anicteric sclerae EOM intact bilaterally ENMT: external ear and nose normal, oropharynx normal Respiratory: normal respiratory effort, lungs clear to auscultation Cardiovascular: RRR, no murmur, no edema Gastrointestinal (Abdomen): normal bowel sounds, soft, nontender, no hepatosplenomegaly Musculoskeletal: Head/Neck/Chest: normocephalic and head atraumatic ALETHEA drain to the back Neurologic: PERRL, EOMI, accommodation nl, no face palsy, no dysarthria Psychiatric: A+Ox3, euthymic affect Results & Data Vital Signs (Past 12 Hours) Vital Signs Temp Pulse Resp BP Pulse Ox 07/13/19 07:22 36.9 C 76 16 137/83 92 07/12/19 22:55 36.8 C 71 16 112/65 96
[2019-07-13] MEDS: FLUTICASONE/SALMETEROL 250/50 (ADVAIR) 14 PUFF/1 INHALER INH SCH (08:20)
[2019-07-13] MEDS: PANTOprazole 40 MG TAB PO SCH (08:20)
[2019-07-13] MEDS: NICOTINE 7 MG/24 HR TDSY TD SCH (08:20)
[2019-07-13] MEDS: lisinopriL 20 MG TAB PO SCH (08:20)
[2019-07-13] MEDS: ATENOLOL 50 MG TABLET PO SCH (08:20)
[2019-07-13] MEDS: TRAMADOL HCL 50 MG TABLET PO PRN ×2 (08:38→13:35)
--- NOTE | 2019-07-13 10:03 | Discharge Summary ---
Date of Service July 13, 2019 Admission HPI Per Admitting Provider This is a 64-year-old male presents with severe spinal stenosis and back and bilateral leg symptoms. He is failed extensive course of nonoperative care and here for surgical intervention. Principal Diagnosis Lumbar spinal stenosis with neurogenic claudication Discharge Data Allergies Allergy/AdvReac Type Severity Reaction Status Date / Time ARTIFICIAL SWEETNERS Allergy Intermediate HIVES/SWELL Uncoded 07/10/19 08:20 ING HAM Allergy Intermediate Hives Uncoded 07/10/19 08:20 Consultations 07/10/19 14:36 Consult Case Management - Discharge Planning Routine Consult Hospitalist Routine Procedures Performed Operation Date: 07/10/19 09:25 Actual Procedures p L1-L2 Decompression, T10-L2 Posterior Spinal Fusion, L1-L2 Interbody Fusion; Spinal Cord Monitoring(Not Applicable) - DO tim Plata Bilateral L2 Screw Removal(Not Applicable) - Gigi House DO Ordered Studies 07/10/19 09:25 FL fluoroscopy <1hr Routine FL lumbar spine 2-3V Routine Hospital Course (1) Lumbar stenosis with neurogenic claudication: Patient underwent multilevel lumbar decompression fusion tolerated as well as taken orthopedic for postoperative postop day #1 he was up and ambulating progressed to postop day #2 ALETHEA drain decreasing probably. Bowels working well. Subsequently discharged home postop day #3. Discharge orders instructions from the chart for further review. Total Time Total Time Spent Total Time Spent (In Minutes): 20 minutes Discharge Plan Discharge Items Patient Disposition: Home - Self-Care Reason For Visit: LUMBAR SPINAL STENOSIS W/NEUROGENIC CLAUDICATION Discharge Diagnosis: Lumbar spinal stenosis with neurogenic claudication Activity: Per Instructions section Non-emergency contact: Primary Care Provider Call non-emergency contact if: you have any medication questions Follow-up/Referrals: Gaviota Ramos M.D. [Primary Care Provider] - Diet: Regular Addtl Attending Provider Instructions: ACTIVITY RECOMMENDATIONS: SELF CARE INSTRUCTIONS AFTER THORACIC/LUMBAR FUSIONS 1. You may walk to your tolerance. It is good exercise for your legs and back. Expect some back and intermittent leg aches and pains. 2. You may perform "counter-top" level activities (make a sandwich, amita with a project, etc.). 3. No bending or lifting of more than 10 pounds or back twisting of any nature (roll like a log when turning in bed). 4. You may ride in a car for 20-30 minutes at a time. No driving until after your first visit with your doctor. 5. Frequent changes of position and restricting sitting to 30 minutes at a time will help limit the amount of back spasms and stiffness you may experience. 6. You may discontinue the use of ambulatory aids (cane, crutches, etc.) once your strength and confidence allow. 7. You may sales ledger administrator the shower and let water strike your incision when you arrive home at least once daily. Do not take a tub bath, sit in a hot tub or go into a swimming pool until after your first recheck in the office. SPECIAL CARE INSTRUCTIONS: VERY IMPORTANT TO READ AND REVIEW A. Your surgical incision has been closed with a cosmetic suture under the skin that will dissolve in about 6 weeks. In 14 days, you can use a pair of clean scissors and cut the suture that is left outside of the skin at the ends of your incision. 1. The small skin tapes can be removed 7 days after surgery if they have not fallen off by that point. 2. You may keep the wound open to air as much as possible to promote healing after post-op day number 5 unless told otherwise by your doctor. 3. If you think the wound looks like it is becoming infected (redness or worsening drainage) and/or you are experiencing fever, chill or worsening back pain and muscle spasms, contact the office so that we may evaluate you as soon as possible. B. Complications are uncommon, but please contact us if you have any signs or symptoms of: 1. wound infection (fever higher than 102.5 degrees F, redness, separation of wound, drainage, or increasing pain from the incision) 2. blood clots in legs (pain, swelling, redness and warmth in legs) 3. urinary tract infection (fever higher than 102.5 degrees F, burning upon urination or increased frequency of urination) 4. nerve problems (inability to walk on your toes or heels, numbness, loss of bowel or bladder control) 5. any other symptoms that concern you C. Please call the office at if you have any concerns or questions about your operation or recovery. D. No smoking! Smoking drastically decreases the chance of a solid fusion. E. Do not take any anti-inflammatory medications (Indocin, Advil, Motrin, Aspirin, Naprosyn, etc.) as these may inhibit the chance of a solid fusion. Tylenol is okay to take for pain. MANAGING PAIN AFTER SPINAL SURGERY 1. Narcotic medication is intended for short-term use and will be provided for surgical pain. Surgical pain usually lasts for a period of 4-6 weeks. Narcotic medication includes Percocet, Vicodin, Darvocet, Tylenol #3 or Lortab. 2. Longer-term pain is more appropriately treated with non-narcotic medication such as Tylenol ES. 3. Muscle spasm is not appropriately treated with narcotics. Muscle relaxers such as Soma, Flexeril or Skelaxin can be used along with Tylenol ES. 4. Remember that we all live with some "aches and pains". This is not unusual or uncommon after an injury or as we get older. a. Back pain is expected and may include muscle spasms for 4 to 6 weeks after surgery. The pain should gradually improve. If the pain worsens for no apparent reason, please contact the office. b. Intermittent leg pain may also be experienced and should not be concerned about unless it worsens for no apparent reason. If so, please contact the office. 5. We will provide appropriate medication within the normal guidelines of their prescribed use. We will also be very cautious and aware of potential abuse and extended duration of patients' medication needs. a. Pain medications are for your comfort and to assist with sleep and rest so that the tissue can heal. They are not provided in order to return to normal activity and should not be used through the day. To do so or worsening pain at night can result from ongoing tissue damage and deve lopment of tolerance to the prescribed medicine. 6. Please allow 2-3 days to process refills. Prescriptions will not be mailed but must be picked up at the office. FOLLOW UP VISIT: Keep your scheduled follow-up appointment. Any questions, please call the office at . Pending Studies at Discharge: No Stand-Alone Forms: [facility] Medications and DC Order Prescriptions: New tramadol 50 mg Tablet 50 mg PO Q4H PRN (Reason: Pain, Moderate) Qty: 30 RF: 0 oxycodone 5 mg Tablet 5 mg PO Q4H PRN (Reason: Pain, Severe) Qty: 30 RF: 0 Continued fluticasone propion-salmeterol [Advair Diskus] 250-50 mcg/dose Blister With Device 1 inh INHALATION QAM RF: 0 pravastatin 40 mg Tablet 40 mg PO HS RF: 0 atenolol 100 mg Tablet 100 mg PO QAM RF: 0 albuterol sulfate 90 mcg/actuation Hfa Aerosol Inhaler 2 puff INHALATION Q6H PRN (Reason: SHORT OF BREATH) RF: 0 Prilosec OTC 20 mg Tablet,Delayed Release (Dr/Ec) 20 mg PO QAM RF: 0 lisinopril 20 mg Tablet 20 mg PO QAM RF: 0 acetaminophen [Tylenol Extra Strength] 500 mg Tablet 1,000 mg PO Q6H PRN (Reason: Pain) RF: 0 Probiotic 3 billion cell Capsule 3,000 mmu cells PO HS RF: 0 No Action aspirin 81 mg Tablet,Chewable 81 mg PO DAILY RF: 0 Discharge Orders: Discharge Order (Routine); Ordered 07/13/19 Ordered By: Gigi House Admission Data Admit Date/Time: 07/10/19 12:40 Attending Provider: Gigi House Admit Provider: Gigi House Primary Care Provider: Gaviota Ramos V. Other Providers: Arturo Short
== END 2019-07-13 14:18 | disposition home or self-care (01) | DRG 454 ==
LOC: ASU 07:37 → 3E 12:40